=== PATIENT | female | born 1970 | race Caucasian/White ===

== ENCOUNTER 2024-06-21 17:24 | Emergency (ER) | payer OTHER ==
[~2024-06-21] VITALS: Ht 162.6 cm; Wt 79.5 kg
[~2024-06-21 17:24] MED LIST: AMLO-257 PO; LEVO100 PO; ONDA-104 PO; VALS80TA2 PO
[2024-06-21] MEDS ORDERED: [UNRECOGNIZED DRUG - CODE] PO (17:27)
[2024-06-21 17:31] VITALS: TEMP 97.8
[2024-06-21] MEDS ORDERED: IBUP-1492 PO (18:48)
[2024-06-21] MEDS ORDERED: LIDO700A15 TP (18:48)
[2024-06-21] MEDS ORDERED: OXYC5 PO (18:48)
[2024-06-21] MEDS ORDERED: ACET-3385 PO (18:48)
[2024-06-21] MEDS: OxyCODONE HCL 5 MG IR TABLET PO ONE (18:54)
[2024-06-21] MEDS: ACETAMINOPHEN 500 MG TABLET PO ONE (18:56)
[2024-06-21] MEDS: LIDOCAINE 5% TRANSDERMAL PATCH TD ONE (18:56)
[2024-06-21] MEDS: KETOROLAC TROMETHAMINE 30 MG/ML VIAL IM ONE (18:57)
[2024-06-21 19:28] VITALS: BP 133/75; PULSE 86; RESP 18; O2SAT 99
== END 2024-06-21 19:51 | disposition home or self-care (01) ==
LOC: EMS 17:24
DX: M54.16 Radiculopathy, lumbar region (principal); I10 Essential (primary) hypertension; Z88.0 Allergy status to penicillin; Z90.49 Acquired absence of other specified parts of digestive tract; Z79.899 Other long term (current) drug therapy
CPT/HCPCS: 99284; 96372; J1885